=== PATIENT | female | born 1980 | race Two or more races ===

== ENCOUNTER → 2017-11-07 | Outpatient (CLI) | payer BC ==
[2017-11-07 12:45] LABS: Basophils # (auto) 0 uL; Basophils % (auto) 0.3 % (0.0-2.0); Eosinophils # (auto) 0.1 uL; Eosinophils % (auto) 1.2 % (0.0-7.0); Hematocrit 40.1 % (36.0-46.0); Hemoglobin 13.4 g/dL (12.2-16.2); Lymphocytes # (auto) 1.5 uL; Lymphocytes % (auto) 29.4 % (10.0-50.0); Mean Corpuscular Hemoglobin 31.1 pg (28.0-32.0); Mean Corpuscular Hgb Conc. 33.3 g/dL (32.0-36.0); Mean Corpuscular Volume 93.5 fL (80.0-100.0); Monocytes # (auto) 0.3 uL; Monocytes % (auto) 6.3 % (0.0-12.0); Neutrophils # (auto) 3.1 uL; Neutrophils % (auto) 62.8 % (37.0-80.0); Platelet Count (auto) 254 10^3/uL (140-450); Red Blood Cells 4.29 10^6/uL (4.0-5.20); Red Cell Distribution Width 13.7 % (11.8-14.3); White Blood Cell 4.9 10^3/uL (4.4-10.8)
[2017-11-07 14:11] LABS: Follicle Stimulating Hormone 3.17 IU/L (SEE BELOW); Leuteinizing Hormone 4.6 IU/L
[2017-11-07 14:23] LABS: BUN/Creatinine Ratio 18.5; Bilirubin, Total 1.1 mg/dL (0.2-1.0); Calcium 9.1 mg/dL (8.5-10.1); Potassium 3.8 mmol/L (3.5-5.1); Total Protein 7.3 g/dL (6.4-8.2)
== END | disposition home or self-care (01) ==
LOC: LAB 11:52
PROVIDERS: ATTEND Internal Medicine
DX: N83.209 Unspecified ovarian cyst, unspecified side (principal); N92.4 Excessive bleeding in the premenopausal period
CPT/HCPCS: 36415; 80053; 83001; 83002; 84144; 84443; 85025

== ENCOUNTER → 2017-12-19 | Outpatient (CLI) | payer BC | END | disposition home or self-care (01) | LOC: LAB 10:36 | PROVIDERS: ATTEND Internal Medicine | DX: N83.209 Unspecified ovarian cyst, unspecified side (principal); L70.9 Acne, unspecified | CPT/HCPCS: 36415; 82672; 84403 ==